=== PATIENT | female | born 1955 ===

== ENCOUNTER → 2020-11-20 | Outpatient (CLI) | payer MEDICARE, OTHER ==
[2020-11-20 14:57] LABS: Free Thyroxine 0.69 ng/dL (0.70-1.60)
[2020-11-20 15:01] LABS: Thyroid Stimulating Hormone 8.84 uIU/mL (0.360-4.800)
== END | disposition home or self-care (01) ==
LOC: LAB SHORT 10:25 → LAB 10:25
PROVIDERS: Family Medicine
DX: E03.9 Hypothyroidism, unspecified (principal)
CPT/HCPCS: 84439; 84443

== ENCOUNTER 2021-05-16 12:57 | Day surgery (SDC) | payer MEDICARE, OTHER ==
[~2021-05-16] VITALS: Ht 160 cm; Wt 55.4 kg
[~2021-05-16 12:57] MED LIST: ASCO500; Aspir 8181 MG PO; CO Q10100 MG PO; FISH OIL 1,2001 EAC1; GARLIC200 MG; VITAMIN D325 MC3
[2021-05-16] MEDS ORDERED: Milk Thistle175 M1 (13:34)
== END 2021-05-16 15:45 | disposition home or self-care (01) ==
LOC: ORSCSDS 12:57
PROVIDERS: Ophthalmology
PROC: 08BR0ZZ Excision of Left Lower Eyelid, Open Approach (ICD-10-PCS; principal; 2021-05-16 14:45)
PROC: 08URX7Z Supplement Left Lower Eyelid with Autologous Tissue Substitute, External Approach (ICD-10-PCS; principal; 2021-05-16 14:45)
DX: H02.012 Cicatricial entropion of right lower eyelid (principal); H02.015 Cicatricial entropion of left lower eyelid; H16.213 Exposure keratoconjunctivitis, bilateral
CPT/HCPCS: A9270; J2250; J2704; J3010; J7040

== ENCOUNTER 2022-03-13 14:18 | Day surgery (SDC) | payer MEDICARE, OTHER ==
[~2022-03-13] VITALS: Ht 157.5 cm; Wt 54.8 kg
[~2022-03-13 14:18] MED LIST changes: +Milk Thistle175 M1
--- NOTE | 2022-03-13 15:50 | NUR ---
03/13/22 1550 Jesus Jones ROPIVACAINE 0.5% 1:200,000 MIXED W/ LIDOCAINE 2% 1:100,000 1:1 PER ORDER FOR INJECTION AT OPSITE BY DR OSULLIVAN
== END 2022-03-13 16:27 | disposition home or self-care (01) ==
LOC: ORSCSDS 14:18
PROVIDERS: Ophthalmology
PROC: 08SQXZZ Reposition Right Lower Eyelid, External Approach (ICD-10-PCS; principal; 2022-03-13 15:45)
DX: H02.012 Cicatricial entropion of right lower eyelid (principal); H16.211 Exposure keratoconjunctivitis, right eye; Z87.891 Personal history of nicotine dependence
CPT/HCPCS: A9270; J2250; J2795; J3010; J3301; J7040

== ENCOUNTER → 2022-08-20 | Outpatient (CLI) | payer MEDICARE, OTHER ==
[2022-08-22 11:12] LABS: HPV 16 Negative (Negative); HPV 18 Negative (Negative); HPV OTHER HR TYPES Negative (Negative)
== END | disposition home or self-care (01) ==
LOC: LAB SHORT 10:45 → LAB 10:45
PROVIDERS: Family Medicine
DX: Z12.4 Encounter for screening for malignant neoplasm of cervix (principal)
CPT/HCPCS: 87624; G0145

== ENCOUNTER → 2024-03-18 | Outpatient (CLI) | payer MEDICARE, OTHER | END | disposition home or self-care (01) | LOC: LAB 10:30 → LAB SHORT 10:30 | DX: L60.3 Nail dystrophy (principal) | CPT/HCPCS: 87102 ==